=== PATIENT | male | born 2000 | race Two or more races ===

== ENCOUNTER 2023-01-07 18:27 | Inpatient (IN) | payer OTHER ==
[~2023-01-07] VITALS: Ht 170.2 cm; Wt 63.0 kg
[2023-01-07] MEDS ORDERED: PYRI-6 PO (21:08)
[2023-01-07] MEDS ORDERED: RIFA300C36 PO (21:08)
[2023-01-07] MEDS ORDERED: ETHA100 PO (21:08)
[2023-01-07] MEDS ORDERED: PYRA500T33 PO (21:08)
[2023-01-07] MEDS ORDERED: CHOL500043 PO (21:08)
[2023-01-07] MEDS ORDERED: ISON300 PO (21:08)
[2023-01-07 21:13] LABS: BASOPHILS % (AUTO) 0.4 % (0.0-2.0); EOSINOPHILS % (AUTO) 0.9 % (1.0-6.0); HEMATOCRIT 48.8 % (41-53); HEMOGLOBIN 16.6 g/dL (13.5-17.5); LYMPHOCYTES # (AUTO) 1.6 K/uL (1.0-4.8); LYMPHOCYTES % (AUTO) 23.2 % (22.0-44.0); MEAN CORPUSCULAR HEMOGLOBIN 27.8 pg (26.0-34.0); MEAN CORPUSCULAR VOLUME 82 fL (80-100); MONOCYTES # (AUTO) 0.4 K/uL (0.1-1.0); MONOCYTES % (AUTO) 5.4 % (2.0-9.0); NEUTROPHILS # (AUTO) 4.7 K/uL (1.8-7.7); NEUTROPHILS % (AUTO) 70.1 % (40.0-70.0); PLATELET COUNT (AUTO) 265 K/uL (150-450); RED BLOOD CELL COUNT(AUTO) 5.97 MIL/uL (4.50-5.90); RED CELL DISTRIBUTION WIDTH 14.7 % (11.5-14.5)
[2023-01-07] MEDS ORDERED: ONDANSETRON HCL 4 MG/2 ML VIAL IVP PRN (21:15)
[2023-01-07 21:20] LABS: ANION GAP 11 mmol/L (8-16); CALCIUM, TOTAL 9.7 mg/dL (8.8-10.5); CARBON DIOXIDE 26 mmol/L (22-29); CHLORIDE 102 mmol/L (98-107); CREATININE 0.74 mg/dL (0.60-1.30); GLOMERULAR FILTR. RATE CALC > 60 mL/min (>60); GLUCOSE,RANDOM 111 mg/dL (70-110); POTASSIUM 3.8 mmol/L (3.5-5.1); SODIUM SERUM 139 mmol/L (136-145)
[2023-01-07 21:24] LABS: COVID AG,FIA SOURCE NASOPHARYNGEAL
[2023-01-07 21:34] LABS: AMPHET/METH SCREEN,URINE NEGATIVE (NEGATIVE); BARBITURATE SCREEN, URINE NEGATIVE (NEGATIVE); BENZODIAZEPINES SCREEN,URINE NEGATIVE (NEGATIVE); CANNABINOID SCREEN,URINE POSITIVE (NEGATIVE); COCAINE SCREEN,URINE NEGATIVE (NEGATIVE); METHADONE SCREEN, URINE NEGATIVE (NEGATIVE); OPIATE SCREEN,URINE NEGATIVE (NEGATIVE); PHENCYCLIDINE SCREEN,URINE NEGATIVE (NEGATIVE)
[2023-01-07 21:34] LABS: ALANINE AMINOTRANSFERASE 20 U/L (12-78); ALBUMIN 4.5 g/dL (3.4-5.0); ALKALINE PHOSPHATASE 74 U/L (46-116); ASPARTATE AMINOTRANSFERASE 19 U/L (15-37); BILIRUBIN,TOTAL 0.3 mg/dL (0.1-1.0); THYROID STIMULATING HORMONE 1.29 uIU/mL (0.36-3.74); TOTAL PROTEIN, SERUM 8.2 g/dL (6.4-8.2)
[2023-01-07 23:25] VITALS: BP 144/79
[2023-01-07] MEDS: ACETAMINOPHEN 325 MG TABLET PO PRN (23:26)
[2023-01-08 04:00] VITALS: BP 105/54
[2023-01-08] MEDS ORDERED: CHOL25TA4 PO (04:49)
[2023-01-08 08:00] VITALS: BP 136/78
[2023-01-08] MEDS: PYRIDOXINE HCL 50 MG TABLET PO SCH (08:49)
[2023-01-08] MEDS: ISONIAZID 300 MG TABLET PO SCH (08:49)
[2023-01-08] MEDS: ETHAMBUTOL HCL 100 MG TABLET PO SCH (08:49)
[2023-01-08] MEDS: PYRAZINAMIDE 500 MG TABLET PO SCH (08:49)
[2023-01-08] MEDS: ETHAMBUTOL HCL 400 MG TABLET PO SCH (08:49)
[2023-01-08] MEDS: RIFAMPIN 300 MG CAPSULE PO SCH (08:50)
[2023-01-08 20:00] VITALS: BP 135/89
[2023-01-08] MEDS ORDERED: MIRTAZAPINE 15 MG TABLET PO SCH (21:00)
[2023-01-09 03:41] VITALS: BP 138/82
[2023-01-09 07:23] VITALS: BP 141/79
[2023-01-09] MEDS: ETHAMBUTOL HCL 100 MG TABLET PO SCH (09:07)
[2023-01-09] MEDS: ISONIAZID 300 MG TABLET PO SCH (09:07)
[2023-01-09] MEDS: PYRIDOXINE HCL 50 MG TABLET PO SCH (09:07)
[2023-01-09] MEDS: RIFAMPIN 300 MG CAPSULE PO SCH (09:07)
[2023-01-09] MEDS: ETHAMBUTOL HCL 400 MG TABLET PO SCH (09:07)
[2023-01-09] MEDS: PYRAZINAMIDE 500 MG TABLET PO SCH (09:07)
[2023-01-09] MEDS: SERTRALINE HCL 50 MG TABLET PO SCH (10:07)
[2023-01-09 16:00] VITALS: BP 131/82
[2023-01-09 19:50] VITALS: BP 141/77
[2023-01-09] MEDS: ACETAMINOPHEN 325 MG TABLET PO PRN (21:18)
[2023-01-10 04:37] VITALS: BP 140/73
[2023-01-10 07:27] VITALS: BP 130/97
[2023-01-10] MEDS: SERTRALINE HCL 50 MG TABLET PO SCH (08:49)
[2023-01-10] MEDS: ETHAMBUTOL HCL 400 MG TABLET PO SCH (08:49)
[2023-01-10] MEDS: PYRAZINAMIDE 500 MG TABLET PO SCH (08:49)
[2023-01-10] MEDS: PYRIDOXINE HCL 50 MG TABLET PO SCH (08:49)
[2023-01-10] MEDS: ISONIAZID 300 MG TABLET PO SCH (08:49)
[2023-01-10] MEDS: RIFAMPIN 300 MG CAPSULE PO SCH (08:49)
[2023-01-10] MEDS: ETHAMBUTOL HCL 100 MG TABLET PO SCH (08:49)
[2023-01-10 19:28] VITALS: BP 118/64
[2023-01-14] MEDS ORDERED: CHOLECALCIFEROL (VIT D3) 1,000 UNITS [25 MCG] TABLET PO SCH (09:00)
== END 2023-01-10 22:40 | DRG 885 ==
LOC: EMS 18:30 → 6N 21:00
PROVIDERS: ADMIT Internal Medicine; ATTEND Internal Medicine
DX: F33.1 Major depressive disorder, recurrent, moderate (principal); A15.0 Tuberculosis of lung; R45.851 Suicidal ideations; Z20.822 Contact with and (suspected) exposure to COVID-19; R00.0 Tachycardia, unspecified; F41.9 Anxiety disorder, unspecified; Z79.899 Other long term (current) drug therapy; Z86.11 Personal history of tuberculosis
CPT/HCPCS: 71045; 80053; 80307; 84443; 85025; 99285; G0480; 36415-L1; 36415-TC